=== PATIENT | male | born 1985 | race Caucasian/White ===

== ENCOUNTER 2023-01-13 19:41 | Emergency (ER) | payer BC ==
[~2023-01-13] VITALS: Ht 177.8 cm; Wt 72.7 kg
[2023-01-13 20:47] VITALS: BP 114/78; PULSE 76
== END 2023-01-13 20:56 | disposition home or self-care (01) ==
LOC: COL.ER 19:41
DX: S01.511A Laceration without foreign body of lip, initial encounter (principal); F17.210 Nicotine dependence, cigarettes, uncomplicated; Z28.310 Unvaccinated for COVID-19; W21.07XA Struck by softball, initial encounter; Y93.64 Activity, baseball